=== PATIENT | female | born 1985 | race Caucasian/White ===

== ENCOUNTER 2018-08-11 16:35 | Emergency (ER) | payer MEDICAID ==
[~2018-08-11] VITALS: Wt 79.0 kg
--- NOTE | 2018-08-11 17:54 | ERD ---
ER Documentation Chief Complaint Chief Complaint 14wks ; VB, cramping x1hr. 'heavier flow than reg period'. HPI This is a 33-year-old female who is 14 weeks has had a prior gynecological visit with a positive IUP on sono. She states 2 hours ago she had a sudden theodore of bright red blood with some cramps and then it resolved. She has no more bleeding and has only mild pelvic cramps. No back pain no fever ROS All systems reviewed and are negative except as per history of present illness. FmHx Family History: No coronary disease Physical Exam Vitals Vital Signs Date Temp Pulse Resp B/P (MAP) Pulse Ox O2 O2 Flow FiO2 Time Delivery Rate 08/11/18 98.5 88 16 134/73 99 17:07 (93) Physical Exam Const: Well-developed, well-nourished Head: Atraumatic, normocephalic Eyes: Normal Conjunctiva, PERRLA, EOMI, normal sclera, no nystagmus ENT: Normal External Ears, Nose and Mouth, moist mucus membranes. Neck: Full range of motion. No meningismus, no lymphadenopathy. Resp: Clear to auscultation bilaterally, no wheezing, rhonchi, rales Cardio: Regular rate and rhythm, no murmurs, S1 S2 present Abd: Soft, mild pelvic tenderness to palpation, non distended. Normal bowel sounds, no guarding or rebound, no pulsitile abdominal masses or bruits Skin: No petechiae or rashes, no ecchymosis , no maculopapular rash Back: No midline or flank tenderness Ext: No cyanosis, or edema, FROM x 4, normal inspection, neurovascularly intact x 4 Neur: Awake and alert, STR 5/5 x 4, sensation intact x 4, no focal findings, cerebellum intact Psych: Normal Mood and Affect Procedures/MDM MR #: [id number] DOS: 08/11/18 0430 Ordering MD: JITENDRA CHERRY DO Location: [facility] Room/Bed: PROCEDURE: US OB. CLINICAL INDICATION: Vaginal bleeding TECHNIQUE: Transabdominal views of the pelvis are available for review. COMPARISON: No prior studies are available for comparison. FINDINGS: There is a single intrauterine gestation with the crown-rump length measuring 7.6 cm, corresponding to a gestational age of 13 weeks and 5 days. The heart rate is noted at 150 bpm. The ovaries are not visualized. There is no free fluid. RPTAT: AA IMPRESSION: Single live intrauterine with an estimated gestational age of 13 weeks and 5 days, based on ultrasound measurements. ZENAIDA based on ultrasound measurements is 02/11/19. .Carlin Staton MD, MD Date Time Electronically viewed and signed by .Carlin Staton MD, on 08/11/2018 18:30 .S/ CC: JITENDRA CHERRY DO [id number] Patient has a live IUP at 13-1/2 weeks. I discussed with him vaginal bleeding precautions and threatened miscarriage precautions. She is not bleeding anymore. 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 Blood type is O+ Departure Diagnosis: Primary Impression: Threatened miscarriage Condition: Stable JITENDRA CHERRY DO August 11, 2018 17:54
[2018-08-11 20:02] VITALS: BP 130/79; PULSE 99; RESP 18
== END 2018-08-11 20:03 | disposition home or self-care (01) ==
LOC: FTE 16:35
DX: O20.0 Threatened abortion (principal); Z3A.13 13 weeks gestation of pregnancy
CPT/HCPCS: 36415; 76801; 84702; 86900; 86901; Z7502